=== PATIENT | female | born 1960 | race Caucasian/White ===

== ENCOUNTER 2022-11-12 12:51 | Outpatient (RCR) | payer BC, OTHER, SELFPAY | END 2022-12-13 10:38 | disposition home or self-care (01) | PROVIDERS: PCP Family Medicine; Visit Provider Orthopaedic Surgery | DX: M16.11 Unilateral primary osteoarthritis, right hip (principal); Z96.641 Presence of right artificial hip joint; Z51.89 Encounter for other specified aftercare | CPT/HCPCS: 97161; 97535 ==

== ENCOUNTER 2022-11-25 11:35 | Outpatient (CLI) | payer BC, OTHER, SELFPAY | END 2022-11-25 11:36 | disposition home or self-care (01) | LOC: LAB 11:39 | PROVIDERS: PCP Family Medicine; Visit Provider Orthopaedic Surgery | DX: Z01.818 Encounter for other preprocedural examination (principal) | CPT/HCPCS: 36415; 86850; 86900; 86901 ==

== ENCOUNTER 2022-11-27 06:07 | Day surgery (SDC) | payer BC, OTHER, SELFPAY ==
[2022-11-27] VITALS (19 sets, daily range): BP systolic 98–147; BP diastolic 70–94; PULSE 62–786; RESP 12–16; TEMP 35.7–36.5; O2SAT 94–99
[2022-11-27] MEDS: ACETAMINOPHEN 500 MG TABLET 1000 MG PO (06:45)
[2022-11-27] MEDS: SODIUM CHLORIDE 0.9 % (FLUSH) 10 ML SYRINGE IVF (06:45)
[2022-11-27] MEDS: LACTATED RINGERS 1000 ML 1,000 ML 100 ML IV ×3 (06:45→09:54)
[2022-11-27] MEDS: CELECOXIB 200 MG CAPSULE PO (06:45)
[2022-11-27] MEDS: OXYCODONE (CR) 10 MG TAB.ER.12H PO (06:45)
--- NOTE | 2022-11-27 07:07 | SUR.PREOP ---
TIME?OUT:? 0710 PT/RN/MDA?VERIFICATION?OF?SURGICAL?SITE,?PROCEDURE,?AND?CONSENT OBTAINED?PRIOR?TO?INVASIVE?PROCEDURE.
[2022-11-27] MEDS: fentaNYL 100 MCG/2 ML inj IVP (07:11)
[2022-11-27] MEDS: MIDAZOLAM HCL 1 MG/ML inj IVP (07:11)
--- NOTE | 2022-11-27 07:21 | CRLHL7_ITS ---
For Patients: As a result of the Cures Act, medical imaging exams and procedure reports are released immediately into your electronic medical record. You may view this report before your referring provider. If you have questions, please contact your health care provider. Indication: Hip replacement surgery Technique: AP hip fluoroscopic images. Fluoroscopy time 51.8 seconds. Findings/Impression: Hardware from a right total hip arthroplasty is in satisfactory position. Dictated by Eligio Israel MD @ 11/27/2022 9:03:52 AM (Electronically Signed)
[2022-11-27] MEDS: CEFAZOLIN 2 GM INJ IVP (07:37)
[2022-11-27] MEDS: TRANEXAMIC ACID 100 MG/ML INJ 1000 MG IV (07:40)
--- NOTE | 2022-11-27 08:15 | P.NB_ITS ---
Nerve Block Nerve Block Time Seen by Provider: 07:13 Date Seen: 11/27/22 Type of block requested by surgeon for post-operative analgesia: SARAH/LFCN Side: right Time out performed: Yes Verification of patient name: Yes Verification of date of : Yes Site marking: site marked Name of person performing procedure: Richard Continuous monitoring Was continuous monitoring of O2 sat, B/P, property assessment monitor, recorded every 15 minutes?: Yes Procedure Checklist: sterile prep, needles and gloves Ultrasound guided. Images saved: Yes Medications given in 5ml increments after negative aspiration: Ropivicaine %: 0.5 mL: 30 Needle gauge: 20 Decadron (mg): 10 Precedex (mcg): 25 Patient tolerated procedure well: Yes Additional comments: Needle noted below psoas tendon needle noted adjacent to LFCN Block Charges Block Charge (with Pro Fee): Other Periph Nerve Block Use of Ultrasound Machine for Block: Yes- US Guidance/pain block
--- NOTE | 2022-11-27 08:16 | W.ANESCHARGE ---
Anesthesia Charges Start Date/Time Anesthesia Start Date: 11/27/22 Anesthesia Start Time: 07:27 Stop Date/Time Anesthesia Stop Date: 11/27/22 Anesthesia Stop Time: 09:37
--- NOTE | 2022-11-27 08:53 | CRLHL7_ITS ---
For Patients: As a result of the Cures Act, medical imaging exams and procedure reports are released immediately into your electronic medical record. You may view this report before your referring provider. If you have questions, please contact your health care provider. Indication: POST OP TIARA Technique: AP hip centered pelvis and lateral view right hip Findings/Impression: Hardware from a right total hip arthroplasty is in satisfactory position. Bone alignment is normal. No sign of acute fracture. Postop changes are within normal limits. Dictated by Eligio Israel MD @ 11/27/2022 11:07:48 AM (Electronically Signed)
--- NOTE | 2022-11-27 08:55 | PM.ORPRC ---
Procedure Note Date of procedure: 11/27/22 Procedure: PREOPERATIVE DIAGNOSIS: Right hip osteoarthritis POSTOPERATIVE DIAGNOSIS: Right hip osteoarthritis NAME OF OPERATION: Right total hip arthroplasty SURGEON: Antwon Schwartz MD SALES CONTRACT ADMINISTRATOR: Jane Mireles PA-C, ERVIN Majano IMPLANTS: 1. [employer] [place] # 54 sector ingrowth cup 2. 36 x 54 +4 neutral polyethylene 3. Actis # 7 standard collared ingrowth stem 4. 36 + 1.5 ceramic femoral head ANESTHESIA: General ESTIMATED BLOOD LOSS: 200 cc COMPLICATIONS: None SPECIMENS: None DRAINS: None PREOPERATIVE ANTIBIOTICS: Ancef 2 grams INDICATIONS: The patient is a 62-year-old with a longstanding history of severe, unrelenting right hip pain secondary to end-stage right hip osteoarthritis. Despite appropriate nonoperative management, including activity modification, use of an assist device, anti-inflammatories, [id number] pain medication, physical therapy and injections, they continue to have pain and disability. Operative intervention was offered. The risks, benefits and expected outcomes were discussed in detail. These included but were not limited to: Infection, bleeding, injury to blood vessel or nerve, venous thromboembolism. All questions were answered to their satisfaction. Use of an perinatal breastfeeding assistant was necessary throughout the case for patient positioning and safety, soft tissue retraction and closure. PROCEDURE: The patient was placed supine on the Marcus table. General anesthesia was administered. The perinatal breastfeeding assistant made sure the patient was properly positioned. The right hip was prepped and draped in the usual sterile fashion. The image intensifier was brought in for a perfect AP pelvis and a perfect double tear drop AP view of each hip which were used for intraoperative templating with our fluoroscopic guide. An oblique incision was made 3 cm distal and 3 cm lateral to the anterior superior iliac spine. The perinatal breastfeeding assistant retracted the soft tissues to protect them. Subcutaneous dissection was taken with electrocautery to the superficial fascia. The fascia was divided in line with the incision. Blunt dissection was carried medially to the tensor fascia nathalie and sartorius interval. Deep dissection was carried with electrocautery. The circumflex vessels were cauterized and divided. The capsule was exposed and then divided in a T-fashion, tagged with #1 Ethibond sutures. Retractors were placed in the joint, held by the perinatal breastfeeding assistant. The corkscrew was placed in the femoral head. The neck cut was made in the subcapital region. We made a second neck cut more distal. The napkin ring of bone was removed. The femoral head was removed intact. Acetabular retractors were placed, held by the perinatal breastfeeding assistant. The labrum was sharply debrided. The capsule was released. The 43 mm reamer was used to the true medial wall. We then enlarged in 2 mm increments using the image intensifier for our reamer placement. We impacted the cup which had excellent purchase. We placed the hole eliminator and the polyethylene. Attention was then turned to the proximal femur. The limb was placed in 140 degrees of external rotation, maximum extension and adduction. A significant amount of time was spent releasing the capsule to allow us to deliver the femur into the wound and complete the femoral side safely. Retractors were held by the perinatal breastfeeding assistant throughout the femoral preparation. The boxing and pressing supervisor and canal finder were used. Broaches were used to a stable size. The calcar reamer was used. Trial components were placed. The hip was reduced and was found to be stable with appropriate soft tissue tension. Length and offset had been nicely restored using the image intensifier and our fluoroscopic guide. Trial components were removed. The stem was impacted. We placed the femoral head. Again, the hip was reduced and was found to be stable with appropriate soft tissue tension. Length and offset had been nicely restored. The perinatal breastfeeding assistant did a three minute dilute Betadine solution soak. The perinatal breastfeeding assistant irrigated the wound with 3 liters of normal saline via pulse lavage. The perinatal breastfeeding assistant repaired the anterior capsule with a #1 Vicryl and our previously placed Ethibond sutures. The perinatal breastfeeding assistant closed the fascia over the tensor fascia nathalie with a #1 PDO Stratafix, subcutaneous tissues with 2-0 Vicryl, skin with a running 3-0 Stratafix and glue. A dry dressing was applied by the perinatal breastfeeding assistant. Sponge and needle counts were correct x 2. The patient tolerated the procedure well; there were no apparent complications. They were awakened and extubated in the operating room, sent to the Post-Anesthesia Care Unit in satisfactory condition. PLAN: 1. The patient will be mobilized with physical therapy, weight-bearing as tolerates 2. Xarelto x 5 days then aspirin x 30 days will be used for DVT prophylaxis 3. The patient will be discharged once medically appropriate
--- NOTE | 2022-11-27 09:40 | W.ANESCHARGE ---
Anesthesia Charges Start Date/Time Anesthesia Start Date: 11/27/22 Anesthesia Start Time: 07:27 Stop Date/Time Anesthesia Stop Date: 11/27/22 Anesthesia Stop Time: 09:37
[2022-11-27] MEDS: fentaNYL 100 MCG/2 ML inj 50 MCG IVP ×2 (09:48→09:55)
[2022-11-27] MEDS: HYDROmorphone 0.5 mg/0.5 ml inj IVP (10:35)
--- NOTE | 2022-11-27 10:37 | PM.IMPN1 ---
Subjective Interval history: NAME OF OPERATION: Right total hip arthroplasty SURGEON: Antwon Schwartz MD ENGAGEMENT LEAD: Jane Mireles PA-C, ERVIN Majano IMPLANTS: 1. [employer] [place] # 54 sector ingrowth cup 2. 36 x 54 +4 neutral polyethylene 3. [employer]is # 7 standard collared ingrowth stem 4. 36 + 1.5 ceramic femoral head ANESTHESIA: General ESTIMATED BLOOD LOSS: 200 cc Exam Narrative: Exam Narrative: Gen: no acute distress HEENT: NCAT EOMI mmm Neck: Supple CV: RRR normal s1 s2 Lungs: CTAB Abd: Soft,nt, nd Neuro: Alert, oriented, CN grossly intact; nonfocal screening?exam Psych: appropriate affect MSK: age appropriate muscle mass Skin; Warm, dry no rash on face Const: Vital Signs, click to edit/add: Vital Signs - 24 hr 11/27/22 06:36 11/27/22 07:11 11/27/22 07:15 Temperature 97.1 F L Pulse Rate 74 75 62 Respiratory Rate 16 16 16 Blood Pressure 141/94 H 146/88 H 129/85 Pulse Oximetry 97 98 97 Oxygen Delivery Me thod Room Air Nasal Cannula Nasal Cannula Oxygen Flow Rate 2 2 11/27/22 09:33 11/27/22 09:40 11/27/22 09:45 Temperature 97.6 F Pulse Rate 84 75 78 Respiratory Rate 16 14 12 Blood Pressure 141/88 H 117/88 98/81 Pulse Oximetry 96 98 97 Oxygen Delivery Me thod Room Air Nasal Cannula Nasal Cannula Oxygen Flow Rate 3 3 11/27/22 09:50 11/27/22 09:55 11/27/22 10:00 Temperature 97.5 F L Pulse Rate 786 H 68 75 Respiratory Rate 14 12 12 Blood Pressure 132/85 113/76 128/70 Pulse Oximetry 96 96 99 Oxygen Delivery Me thod OxyMask OxyMask OxyMask Oxygen Flow Rate 10 10 6 11/27/22 10:05 11/27/22 10:10 11/27/22 10:14 Temperature 97.5 F L 97.5 F L Pulse Rate 66 69 73 Respiratory Rate 12 14 14 Blood Pressure 127/79 126/90 H 125/85 Pulse Oximetry 98 95 94 Oxygen Delivery Me thod Room Air Room Air Room Air Oxygen Flow Rate
[2022-11-27] MEDS: OXYCODONE 5 MG TABLET PO (11:01)
[2022-11-27] MEDS: CEFAZOLIN 2 GM in 0.9 % SODIUM CHLORIDE Mini-bag 100 ML IVPB (12:30)
--- NOTE | 2022-11-27 13:39 | SUR.PHASEII ---
pt cleared by PT and reports pain as tolerable, denies nausea and is in good spirits. Pt DC'd home
== END 2022-11-27 13:45 | disposition home or self-care (01) ==
LOC: OR 06:08 → MEDSURG 06:11
PROVIDERS: PCP Family Medicine; Visit Provider Orthopaedic Surgery
PROC: (CPT 27130; principal; 2022-11-27 07:15)
DX: M16.11 Unilateral primary osteoarthritis, right hip (principal); G89.18 Other acute postprocedural pain
CPT/HCPCS: 27130; 1214; 64450; 73501; 76000; 76942; 97161; 97165; 97530; 97535; A9270; C1776; J0330; J0690; J1100; J1170; J1200; J2250; J2371; J2405; J2704; J2710; J2795; J3010; J3475; J3490; J7120